=== PATIENT | female | born 1965 | race Caucasian/White ===

== ENCOUNTER 2019-07-21 09:46 | Outpatient (CLI) | payer OTHER ==
--- NOTE | 2019-07-21 16:45 | XRAY Report ---
Reason: STRAIN OF RT THUMB Procedure Date: 07/21/2019 Accession Number: [id number] / [id number] Procedure: XR - Finger(s) RT CPT Code: Final Report FULL RESULT: EXAM: RIGHT FIRST DIGIT RADIOGRAPHY EXAM DATE: 07/21/2019 10:00 AM. CLINICAL HISTORY: Strain of right thumb. COMPARISON: None. TECHNIQUE: 2 views. FINDINGS: Bones: No acute fracture or bony lesion. No bony erosions. Joints: Mild degenerative changes of the first metacarpophalangeal and first carpometacarpal joints. No dislocation. Soft Tissues: Normal. No soft tissue swelling. IMPRESSION: 1. No acute osseous abnormalities. 2. Mild degenerative changes. RADIA
== END 2019-07-21 09:47 | disposition home or self-care (01) ==
LOC: DI 09:46
PROVIDERS: ATTEND Family Medicine
DX: S66.211A Strain of extensor muscle, fascia and tendon of right thumb at wrist and hand level, initial encounter (principal); M19.041 Primary osteoarthritis, right hand
CPT/HCPCS: 73140

== ENCOUNTER 2019-10-26 14:46 | Outpatient (CLI) | payer OTHER ==
--- NOTE | 2019-10-26 16:11 | SLEEP CARE CONSULTATION ---
Information from patient questionnaire entered by Rachelle Goel. I have reviewed and concur with the information entered by Rachelle Goel. This document represents the service I personally performed and the decisions made by me, Ellen Gilbert MD, [facility]. History of Present Illness Service Date and Time: 10/26/2019 1446 Reason for Visit: New patient Chief Complaint: reports: Unrefreshed sleep, Observed pauses in breathing, Fatigue, Frequent awakenings at night Date of Onset: years Usual bedtime: 3039-5443 Time it takes to fall asleep: 5-60 minutes Snores at night: Yes Observed to quit breathing while asleep: Yes Number of times waking at night: 4-8 Reasons for waking at night: reports: Pain, Bathroom, Other (hot flashes) Toss, Turn, or Twitch while sleeping: Yes Recalls having dreams: Yes Usually gets out of bed at: [id number] Feels refreshed in the morning: No Morning headache: No Sleepy or fatigued during the day: Yes Ever fallen asleep while driving: Yes Takes day naps: Yes Dreams during day naps: No Prior sleep studies: Yes Year and Where: 1998 [place] Type of Sleep Study: Polysomnography Additional HPI information: I had the pleasure of seeing Ms. Sullivan today regarding the possibility of her having a sleep disorder. As you know, she is a 54 year old lady who complains of observed apneas, frequent awakenings, unrefreshed sleep, and persistent fatigue. She had a sleep study in [place] in 1998 that was incomplete. She said they wanted to have take naps after the night study and she refused because she had to smoke. She was never told of the night results. She continues to snore. He ex- told her the she stopped breathing at night. Subjective Initial [employer] [place] Sleepiness Scale score: 15 Past Medical History Past Medical History: reports: Arthritis, Hypothyroidism, Fibromyalgia (possible), Anxiety, Asthma, Depression, Other (2 autoimmune diseases) Social History The patient's occupation is a [employer]. Patient is and lives in [place]. Have you smoked in the past 12 months: No Cigarettes per day (20/pack): 10 Years of smokin Quit date: 12/16/16 Smoking Pack Years: 18.0 Alcohol use: Yes Alcohol amount and frequency: 4-5 per week Caffeine use: Yes Caffeine amount and frequency: 2-3 cups prior to 10am Family History Family history of sleep disordered breathing: No Allergies and Home Medications Drug allergies reviewed: Yes Home medication list reviewed: Yes Review of Systems Weight gain over past 5 years: 10-15 Cardiovascular: reports: leg or foot swelling Respiratory: reports: shortness of breath (asthma), wheeze (asthma) Gastrointestinal: denies: heartburn, difficulty swallowing, nausea, vomitting, diarrhea, abdominal pain, other Urinary: denies: incontinence, frequency, urgency, impotence, other Neurological: denies: headaches, seizure, head trauma, disorientation, speech dysfunction, gait or balance problems, fainting or unconsciousness, other Psychiatric: reports: anxiety, depression Ear/Nose/Throat: reports: dry mouth/throat Endocrine: reports: thyroid disease, sluggishness, too hot or cold Musculoskeletal: reports: joint pain, back pain, mobility problems (sometimes) Immunologic: reports: sneezing, rash, itching, allergies to food or environment Physical Exam Vital signs obtained and entered by: Detailed physical exam was not performed to comply with COVID-19 precaution Height: 4 ft 10 in Weight: 136 lb Body Mass Index: 28.4 BMI Classification: Overweight Impression and Plan IMPRESSION: 1. Obstructive Sleep Apnea-Hypopnea Syndrome, as suggested by history of loud and irregular snoring, observed cessation of breath while asleep, frequent awakenings during the night, unrefreshed sleep, and daytime hypersomnolence. Narrow oropharynx and obesity are common predisposing factors for obstructive sleep apnea-hypopnea syndrome. Pathophysiology of sleep-disordered breathing was discussed. I recommend proceeding to polysomnography to confirm the diagnosis and to assess severity. If she has significant sleep disordered breathing, a manual CPAP titration study will also be performed to find the optimal treatment pressure. I informed the patient of what the sleep studies involve and after some discussion, she agreed to proceed. Plan: 1. Schedule an in-laboratory polysomnography + manual CPAP titration study. 2. Avoid long distance driving or when feeling sleepy. 3. Avoid alcohol, sedative and muscle relaxant around bedtime. 4. Attempt to lose weight. 5. Return in 1 to 2 weeks after the study to discuss results and initiate therapy Visit Type: In Office Time Spent with Patient (minutes): 15 Provider Statement: I spent 100% of the Face to Face Visit with the patient with greater than 50% spent counseling the patient and coordination of care.
== END 2019-10-26 14:47 | disposition home or self-care (01) ==
LOC: SC 14:46
PROVIDERS: ATTEND Internal Medicine Pulmonary Disease
DX: R06.83 Snoring (principal); R06.81 Apnea, not elsewhere classified; G47.10 Hypersomnia, unspecified; R53.83 Other fatigue; G47.8 Other sleep disorders; E66.3 Overweight; Z68.28 Body mass index [BMI] 28.0-28.9, adult
CPT/HCPCS: 99203; 99212

== ENCOUNTER 2020-02-09 14:45 | Outpatient (CLI) | payer OTHER ==
--- NOTE | 2020-02-09 16:08 | Ultrasound Report ---
PROCEDURE: Head or Neck Soft Tissue INDICATIONS: LASHANDA'S DISEASE, THYROID NODULE TECHNIQUE: Real time scanning was performed of the neck region of interest, with image documentation . COMPARISON: None. FINDINGS: Right lobe of the thyroid measures 4.1 x 1.2 x 1.2 cm. The left lobe of the thyroid measure s 3.2 x 1.3 x 0.8 cm. Thyroid appears diffusely heterogeneous however no discrete nodule seen. Mildly prominent right level 2 lymph node measuring 2.3 x 0 1.8 x 0.7 cm. IMPRESSION: Heterogeneous appearance of the thyroid. No discrete thyroid nodule. Mildly prominent right level 2 lymph node, nonspecific finding. Recommend clinical correlation. Reviewed by: Shaw Noriega MD on 02/09/2020 4:07 PM PST Approved by: Shaw Noriega MD on 02/09/2020 4:07 PM PST Station ID: [id number]
== END 2020-02-09 14:46 | disposition home or self-care (01) ==
LOC: DI 14:45
PROVIDERS: ATTEND Internal Medicine Endocrinology, Diabetes & Metabolism
DX: E06.3 Autoimmune thyroiditis (principal); E04.1 Nontoxic single thyroid nodule; E03.8 Other specified hypothyroidism; E28.319 Asymptomatic premature menopause
CPT/HCPCS: 36415; 84439; 84443; 84481

== ENCOUNTER 2020-02-09 14:47 | Outpatient (CLI) | payer OTHER ==
[2020-02-09 15:36] LABS: THYROID STIMULATING HORMONE 1.56 uIU/mL (0.34-5.60)
[2020-02-09 15:37] LABS: FREE T3 4.12 pg/mL (2.5-3.9)
[2020-02-09 15:38] LABS: FREE T4 (FREE THYROXINE) 1.09 ng/dL (0.58-1.64)
== END 2020-02-09 14:48 | disposition home or self-care (01) ==
LOC: LAB 14:47
PROVIDERS: ATTEND Internal Medicine Endocrinology, Diabetes & Metabolism
DX: E03.8 Other specified hypothyroidism (principal)
CPT/HCPCS: 36415; 84439; 84443; 84481

== ENCOUNTER 2020-04-14 12:48 | Outpatient (CLI) | payer OTHER ==
[2020-04-14 13:24] VITALS: BP 123/91
--- NOTE | 2020-04-14 13:24 | SLEEP CARE CONSULTATION ---
Information from patient questionnaire entered by Clementina Parson. I have reviewed and concur with the information entered by Clementina Parson. This document represents the service I personally performed and the decisions made by , Ana Varner ARNP. History of Present Illness Service Date and Time: 04/14/2020 1248 Reason for follow up: six month (Restart process ) Prior sleep studies: Yes Year and Where: 1998 [facility] additional information: I had the pleasure of seeing AKBAR CLEVELAND today regarding the possibility of her having a sleep disorder. Her current complaints are insomnia, snoring, obse rved pauses in breathing, frequent night awakenings, unrefreshed sleep, excessive daytime sleepiness and fatigue. She was seen and approved for a sleep study but she got sick, then she was too busy for the second one and then on the third she was overwhelmed due to have a ligament repair on her thumb. She was told by the surgeon, anesthesiologist and nurses told her she needed to get checked out. She has a history of arthritis, anxiety, depression, asthma, hypothyroidism and possible fibromyalgia. Subjective Initial [place] Sleepiness Scale score: 15 (in 2019) Current [place] Sleepiness Scale score: 19 Allergies and Home Medications Drug allergies reviewed: Yes (NKDA) Home medication list reviewed: Yes Allergy and home medication list: Cytomel Synthroid Advair Cymbalta Valacyclovir B complex Calcium with vitamin D3 Fish oil Glucosamine Vitamin C Physical Exam Blood Pressure: 123/91 Cuff size: wrist Heart Rate: 91 O2 Saturation: 97 Height: 4 ft 10 in Weight: 128 lb 3.2 oz Body Mass Index: 26.8 BMI Classification: Overweight Heart: regular rate and rhythm Lungs: clear bilaterally Impression and Plan 1. Suspected Obstructive Sleep Apnea-Hypopnea Syndrome, as suggested by a history of loud and irregular snoring, observed cessation of breath while asleep, gasping or choking in sleep, frequent awakening during the night, unrefreshed sleep, cognitive impairment, and excessive daytime sleepiness. I recommend proceeding to polysomnography to confirm the diagnosis and to assess severity. If the patient has significant sleep disordered breathing, a manual CPAP titration study will also be performed to find the optimal treatment pressure. I informed the patient of what the sleep studies involve and after some discussion, obtained agreement to proceed. The pathophysiology of obstructive sleep apnea-hypopnea syndrome was discussed with the patient and health risks of cardiovascular and cerebrovascular disease if not treated. [facility] brochure for obstructive sleep apnea-hypopnea syndrome given and reviewed. Risks of drowsy driving discussed in detail and patient advised to avoid long distance driving and to chain puller at the first sign of drowsiness. Patient agreed to plan. [facility] drowsy driving brochure given. * Schedule polysomnography +- manual CPAP titration study and return in 1-2 weeks after the study to discuss result and initiate therapy. * Avoid long distance driving or driving when feeling sleepy. * Avoid alcohol, sedative and muscle relaxant around bedtime. * Attempt to lose weight. * Review instructions provided by trained office staff on how to prepare for the sleep study. * Return for follow-up after sleep study completed. Counseling Topics: Weight loss health impact Visit Type: In Office Time Spent with Patient (minutes): 21 Provider Statement: I spent 100% of the Face to Face Visit with the patient with greater than 50% spent counseling the patient and coordination of care.
== END 2020-04-14 12:49 | disposition home or self-care (01) ==
LOC: SC 12:48
PROVIDERS: ATTEND Nurse Practitioner Family
DX: G47.10 Hypersomnia, unspecified (principal); G47.8 Other sleep disorders; R41.89 Other symptoms and signs involving cognitive functions and awareness; R06.81 Apnea, not elsewhere classified; R06.83 Snoring; E66.3 Overweight; Z68.26 Body mass index [BMI] 26.0-26.9, adult
CPT/HCPCS: 99212; 99213

== ENCOUNTER 2020-08-03 20:53 | Outpatient (CLI) | payer OTHER | END 2020-08-03 20:54 | disposition home or self-care (01) | LOC: SC 20:53 | PROVIDERS: ATTEND Nurse Practitioner Family | DX: G47.33 Obstructive sleep apnea (adult) (pediatric) (principal) | CPT/HCPCS: 95810 ==

== ENCOUNTER 2020-08-16 08:53 | Outpatient (CLI) | payer OTHER ==
--- NOTE | 2020-08-16 09:18 | SLEEP CARE CONSULTATION ---
Information from patient questionnaire entered by Clementina Parson. I have reviewed and concur with the information entered by Clementina Parson. This document represents the service I personally performed and the decisions made by , Ana Varner ARNP. History of Present Illness Service Date and Time: 08/16/2020 0853 Initial [place] Sleepiness Scale score: 15 (in 2020) Current [place] Sleepiness Scale score: 17 Additional HPI information: AKBAR CLEVELAND returns via Telehealth visit for follow up and results of the recently performed polysomnography. I explained the pathophysiology behind obstructive sleep apnea. We then spent quite a bit of time discussing different treatment options. For mild obstructive sleep apnea, surgery and oral appliance are alternatives to nasal CPAP therapy but in moderate or severe cases, nasal CPAP is the most effective and reliable treatment. Because apnea is primarily in supine position, then positional management therapy could be effective. Methods discussed such as positioning with pillows, using a T-shirt with tennis balls in the back, and shown commercial products that have a pillow format on back to prevent supine sleep. I reviewed the impact of weight changes on sleep apnea and strongly recommended losing weight. After some discussion, the patient opted to go with the nasal CPAP therapy. Nasal autoCPAP set at 4-15 cmH20 will be ordered with rationale explained. A manual titration study will be ordered if unable to find optimal pressure with office adjustments. I explained how CPAP machine works and what to expect when using the machine. Using CPAP every night in order to get used to it was emphasized. Patient advised to put CPAP mask on before getting into bed so as not to fall asleep without CPAP. To assist acclimation to CPAP use, it could also be used for a short time during day while reading or watching TV. The patient was instructed to call the CPAP supplier to discuss any mechanical problem that may occur. If the mask given is uncomfortable or is difficult to keep on through the night even with adjustment, contact the CPAP supplier as many will replace with another mask style if notified before 30 days. If snoring or perceives is not getting enough air or too much air from the machine, notify this office. Patient counseled not drink alcohol less than 4 hours before bedtime as it can increase snoring and apnea. Patient was cautioned about risks of drowsy driving until sleepiness symptoms resolve. Sleep Study - Results Type of Sleep Study: Polysomnography Prior sleep studies: Yes Year and Where: 1998 [place] Polysomnography/Home Sleep Study results: IMPRESSION: The quality of the study is good. The patient had normal sleep efficiency. The sleep architecture was abnormal for sleep fragmentation and lack of REM sleep. Respiratory monitoring showed mild obstructive sleep apnea-hypopnea (AHI = 11.3) associated with frequent arousals, oxyhemoglobin desaturation and moderate hypoxia (fabian oxygen saturation of 77%). Baseline oxygen saturation was normal. The respiratory events occurred mainly during supine sleep (supine AHI = 29.1; non-supine = 7.75). Snore was moderate in intensity. There was no significant periodic leg movement of sleep. Cardiac rhythm was normal sinus rhythm without significant arrhythmia. No abnormal behavior (parasomnia) observed during the night. Allergies and Home Medications Home medication list reviewed: Yes (no new meds) Review of Systems Review of systems same as previous: Yes (no changes) Physical Exam Vital signs obtained and entered by: Telehealth visit to reduce exposure during covid pandemic Height: 4 ft 10 in Impression and Plan 1. Obstructive Sleep Apnea-Hypopnea Syndrome, mild, with lowest oxygen saturation of 77%. Obviously this is the cause of the patients symptoms of unrefreshed sleep, and excessive daytime sleepiness. Positive pressure therapy could benefit anxiety and depression. As mentioned above, the patient will be started on nasal autoCPAP therapy with pressure set at 4-15 cmH2O. A manual titration study will be completed if unable to find optimal treatment pressure with office adjustments. Compliance guidelines also reviewed. A copy of compliance guidelines will be given for reference at check out. Because the apnea is more severe supine, I instructed to avoid sleeping supine using pillow positioning until able to start CPAP use. * Nasal auto CPAP therapy, pressure at 4-15 cm H2O. * Attempt to lose weight. * Avoid alcohol consumption near bedtime. * Avoid supine sleep until using CPAP. * The patient is again cautioned about driving until sleepiness completely resolves. * Return one month after CPAP obtained. I will assess response to therapy and compliance at that time. Counseling Topics: Weight loss health impact Visit Type: Telehealth Video Video Type: VSee Patient Location: Home Location of Provider: Office Patient agrees and consents to this telehealth visit type: Yes Patient agrees to have their insurance billed: Yes Time Spent with Patient (minutes): 21 Provider Statement: I spent 100% of the Telehealth Video Call with the patient with greater than 50% spent counseling the patient and coordination of care.
== END 2020-08-16 08:54 | disposition home or self-care (01) ==
LOC: SC 08:53
PROVIDERS: ATTEND Nurse Practitioner Family
DX: G47.33 Obstructive sleep apnea (adult) (pediatric) (principal)

== ENCOUNTER 2020-10-18 13:19 | Outpatient (CLI) | payer OTHER ==
--- NOTE | 2020-10-18 13:40 | SLEEP CARE CONSULTATION ---
Information from patient questionnaire entered by Clementina Parson. I have reviewed and concur with the information entered by Clementina Parson. This document represents the service I personally performed and the decisions made by , Ana Varner ARNP. History of Present Illness Service Date and Time: 10/18/2020 1319 Previous diagnosis: Mild, Obstructive Sleep Apnea-Hypopnea Syndrome AHI: 11.3 (in 2020) Reason for follow up: first compliance Equipment type: CPAP Equipment obtained from: [facility] (getting supplies as needed) Mask style: Nasal Backup mask available: No (will keep old mask when replaced) Last cushion change: 1 month Prior sleep studies: Yes Year and Where: 2020 - [facility]; 1998 [place] Type of Sleep Study: Polysomnography HPI additional information: AKBAR CLEVELAND was diagnosed to have mild, AHI 11.3, obstructive sleep apnea- hypopnea syndrome and returns via Telehealth visit today for CPAP therapy first compliance follow-up. CPAP Compliance Data - Data Reviewed with Patient Average duration of nightly device use: 5 hr 41 min Compliance rate %: 70 Current pressure setting (cmH2O): 4-6 (median 5.1, avg 5.8, peak 5.9) Humidity settin Average residual AHI: 5.2 Subjective Missed days of use due to: reports: mask issues Patient concerns: denies: aerophagia, mask discomfort, air blowing in eyes, mask leak noise, condensation in mask/hose, nasal congestion, dry mouth, nose, throat, epistaxis, other Observed to snore while using device: No Current pressure setting perceived as: comfortable On therapy, patient: reports: sleeping better, awakening more refreshed, being more awake and alert during the day, more rested overall. denies: drowsiness while driving Initial [place] Sleepiness Scale score: 15 (in 2019) Current [place] Sleepiness Scale score: 8 Allergies and Home Medications Home medication list reviewed: Yes (no changes) Review of Systems Review of systems same as previous: Yes (no changes) Physical Exam Vital signs obtained and entered by: Telehealth visit to reduce exposure during Covid pandemic Height: 4 ft 10 in Impression and Plan 1. Obstructive Sleep Apnea-Hypopnea Syndrome, mild, with good treatment compliance and fair apnea control with minimal elevation of residual AHI. On CPAP therapy, the patient has better sleep quality and is more rested overall. Patient has had some issues with the mask. She did not do well with the full facemask but since switching to the nasal cushion she is finding that it is more comfortable with less issues. She is able to use her CPAP more consistently. The patients pressure will be changed to autoCPAP 5-7 cmH20 for minimal elevation of residual AHI. Patient advised to contact me if pressure change is uncomfortable so that it can be adjusted. Goals for apnea control discussed. Patient states that she is starting to get good results with using her CPAP machine. She is also made some lifestyle changes that seem to also be increasing her rested feeling and her daily energy. Patient's apnea severity and rationale for treatment to reduce apnea, improve sleep quality and reduce cardiovascular and cerebrovascular events was reviewed. I also reviewed the benefit of consistent device use of CPAP for depression/anxiety. Patient encouraged to try to lose weight. * Change auto CPAP pressure to 5-7 cmH2O * Notify me if snoring with mask or feeling that the pressure is too much or too little * Attempt to lose weight * Call this office if any problems using CPAP * Return for follow up in 3 months, or sooner if concerns arise Follow up with Sleep Care in: 3 months Visit Type: Telehealth Video Video Type: ASTRIDee Patient Location: Home Location of Provider: Office Patient agrees and consents to this telehealth visit type: Yes Patient agrees to have their insurance billed: Yes Time Spent with Patient (minutes): 20 Provider Statement: I spent 100% of the Telehealth Video Call with the patient with greater than 50% spent counseling the patient and coordination of care.
== END 2020-10-18 13:20 | disposition home or self-care (01) ==
LOC: SC 13:19
PROVIDERS: ATTEND Nurse Practitioner Family
DX: G47.33 Obstructive sleep apnea (adult) (pediatric) (principal)

== ENCOUNTER 2021-01-17 11:00 | Outpatient (CLI) | payer OTHER ==
--- NOTE | 2021-01-17 11:16 | SLEEP CARE CONSULTATION ---
Information from patient questionnaire entered by Francisca Kaur MA. I have reviewed and concur with the information entered by Francisca Kaur MA. This document represents the service I personally performed and the decisions made by , Ana Varner ARNP. History of Present Illness Service Date and Time: 01/17/2021 1100 Previous diagnosis: Mild, Obstructive Sleep Apnea-Hypopnea Syndrome AHI: 11.3 Reason for follow up: three month (pressure change) Equipment type: CPAP Equipment obtained from: [employer] (getting supplies, got a wrong supplies and going to exchange) Mask style: Nasal Backup mask available: No (not a back up headgear) Prior sleep studies: Yes Year and Where: 2020 - [facility]; 1998 [place] Type of Sleep Study: Polysomnography HPI additional information: AKBAR CLEVELAND was diagnosed to have mild, AHI 11.3, obstructive sleep apnea- hypopnea syndrome and returns via video telehealth visit today for CPAP therapy three month with pressure change follow-up. Sleep Study - Results Type of Sleep Study: Polysomnography [facility]: Yes [facility] [place] CPAP Compliance Data - Data Reviewed with Patient Average duration of nightly device use: 5 hours 34 minutes Compliance rate %: 60 Current pressure setting (cmH2O): 5-7 Average residual AHI: 3.1 Central apnea: 0.4 Obstructive apnea: 1.9 Subjective Missed days of use due to: reports: other (back pain waking her up and keeping her from using CPAP) Patient concerns: denies: aerophagia, mask discomfort, air blowing in eyes, mask leak noise, condensation in mask/hose, nasal congestion, dry mouth, nose, throat, epistaxis, other Observed to snore while using device: No Current pressure setting perceived as: comfortable On therapy, patient: reports: sleeping better, awakening more refreshed, being more awake and alert during the day, more rested overall. denies: drowsiness while driving Initial [place] Sleepiness Scale score: 15 (in 2019) Current [place] Sleepiness Scale score: 8 Allergies and Home Medications Home medication list reviewed: Yes (reducing duloxetine over 12 weeks; methcarbamol, prn) Review of Systems Review of systems same as previous: Yes (ongoing back pain, being addressed) Physical Exam Vital signs obtained and entered by: Telehealth visit to reduce exposure during Covid pandemic Height: 4 ft 10 in Impression and Plan 1. Obstructive Sleep Apnea-Hypopnea Syndrome, mild, with fair treatment compliance and good apnea control. On CPAP therapy, the patient has better sleep quality and is more rested overall. Patient has had some difficulty due to bad back pain that is waking her up at night and making it difficult for her to tolerate CPAP mask on. She is trying to use it as much as she can and she has already reached compliance at her previous visit. Patient intends to continue to use her CPAP every night and to bring up her compliance again. Patient has no issues with using CPAP mask otherwise. She is very happy with current pressure settings. Patient has been trying to lose weight to take pressure off her painful back and to reduce apneas. I encouraged her to continue to try to lose weight. Patient's apnea severity and rationale for treatment to reduce apnea, improve sleep quality and reduce cardiovascular and cerebrovascular events was reviewed. I also reviewed the benefit of consistent device use of CPAP for depression/anxiety. * Continue auto CPAP pressure at 5-7 cmH2O * Notify me if snoring with mask or feeling that the pressure is too much or too little * Continue to try to lose weight * Call this office if any problems using CPAP * Return for follow up in 6 months, or sooner if concerns arise Counseling Topics: Spare mask, Weight loss health impact Patient Location: Home Location of Provider: Office Patient agrees and consents to this telehealth visit type: Yes Patient agrees to have their insurance billed: Yes Time Spent with Patient (minutes): 22
== END 2021-01-17 11:01 | disposition home or self-care (01) ==
LOC: SC 11:00
PROVIDERS: ATTEND Nurse Practitioner Family
DX: G47.33 Obstructive sleep apnea (adult) (pediatric) (principal)

== ENCOUNTER 2021-12-21 08:05 | Outpatient (CLI) | payer OTHER | END 2021-12-21 08:06 | disposition EMS.NT | LOC: EMS 08:05 | DX: S50.812A Abrasion of left forearm, initial encounter (principal); R07.89 Other chest pain; V49.40XA Driver injured in collision with unspecified motor vehicles in traffic accident, initial encounter; Y92.413 State road as the place of occurrence of the external cause ==

== ENCOUNTER 2022-07-11 10:43 | Outpatient (CLI) | payer OTHER ==
--- NOTE | 2022-07-11 10:59 | XRAY Report ---
PROCEDURE: Lumbar Spine 2 View INDICATIONS: SP LUMBAR FUSION TECHNIQUE: 2 views of the lumbar spine were acquired. COMPARISON: None. FINDINGS: Bones: 5 [id number] vertebrae are present. Posterior and interbody surgical fusion L3 and L4, w ithout hardware complication. Grade 1 retrolisthesis of L2 on L3. Moderate disc height loss at all le vels. Facet arthrosis L5-S1. Soft tissues: Overlying bowel gas pattern is normal. No suspicious soft tissue calcifications. IMPRESSION: Posterior and interbody surgical fusion at L3-L4, without hardware complication. Moderate, multilevel degenerative disc disease. Reviewed by: Harvinder Duarte on 07/11/2022 10:58 AM PDT Approved by: Harvinder Duarte on 07/11/2022 10:58 AM PDT Station ID: [id number]
== END 2022-07-11 10:44 | disposition home or self-care (01) ==
LOC: DI 10:43
PROVIDERS: ATTEND Neurological Surgery
DX: Z98.1 Arthrodesis status (principal); M51.36 Other intervertebral disc degeneration, lumbar region

== ENCOUNTER 2023-01-10 13:06 | Outpatient (CLI) | payer OTHER ==
--- NOTE | 2023-01-10 16:20 | XRAY Report ---
PROCEDURE: Lumbar Spine Complete INDICATIONS: S/P LUMBAR FUSION TECHNIQUE: 4 views of the lumbar spine were acquired. COMPARISON: Lumbar spine radiographs 07/11/2022 FINDINGS: Bones: 5 [id number] vertebrae are present. No vertebral body compression fractures. No suspic ious bony lesions. Postsurgical changes are again seen from laminectomy and posterior fixation at th e L3-4 level. Metal hardware appears intact with unchanged alignment. Good 1 anterolisthesis again se en at L2-3. Multilevel degenerative changes do not appear significantly changed. Flexion and extensio n views demonstrate no abnormal subluxation. Soft tissues: Overlying bowel gas pattern is normal. No suspicious soft tissue calcifications. IMPRESSION: 1.Postsurgical changes again seen at L3-4 without acute hardware complication. 2.Multilevel spondylosis. Degenerative spondylolisthesis at L2-3 without abnormal subluxation. Reviewed by: Alexander Singletary MD on 01/10/2023 4:18 PM PST Approved by: Alexander Singletary MD on 01/10/2023 4:18 PM PST Station ID: [id number]
== END 2023-01-10 13:07 | disposition home or self-care (01) ==
LOC: DI 13:06
PROVIDERS: ATTEND Neurological Surgery
DX: M47.816 Spondylosis without myelopathy or radiculopathy, lumbar region (principal); M43.16 Spondylolisthesis, lumbar region; Z98.1 Arthrodesis status